=== PATIENT | female | born 2005 | race Hispanic/Latino ===

== ENCOUNTER 2023-04-17 19:27 | Inpatient (IN) | payer MEDICAID, SELFPAY ==
[2023-04-17 20:08] VITALS: BP 125/73; TEMP 36.6
[2023-04-17 20:09] VITALS: PULSE 82; O2SAT 97
[2023-04-17 20:10] VITALS: BMI 31.4
[2023-04-17] MEDS: Lactated Ringers 1,000 ML 50 ML IV (20:15)
--- NOTE | 2023-04-17 20:30 | PCM.HP.OB ---
HPI - General General Date of Admission: 04/17/23 HPI Taina TAYLOR, is a 17 F at 36.6 who presents for induction of labor for cholestasis. Maternal Data Information ADRIAN Calculator Estimated Delivery Date Method Current WG Current Estimate 05/09/23 Manual 36w 6d [facility] Medical History (Updated 04/17/23 @ 21:35 by Brigitte Turner CNM) Cholestasis during Home Medications ferrous sulfate 325 mg (65 mg iron) tablet (iron) 325 mg PO DAILY 04/17/23 [History Last Taken 04/17/23 08:00 325 mg] [id number] 1 mg tablet 1 tab PO DAILY 04/17/23 [History Last Taken 04/17/23 08:00 1 TAB] Allergy/AdvReac Type Severity Reaction Status Date / Time No Known Allergies Allergy Verified 04/17/23 20:11 History Elective abortions Hx Para 0 Spontaneous abortions Hx # Term Pregnancies Ectopic pregnancies Hx # Pregnancies Multiple births # of living children NST FHR Rate Baby A Baseline: 130 Variability:: Moderate Accelerations:: 15 x 15 Decelerations:: None NST Reactive:: Yes FHR Category:: Category I Uterine Activity:: None ROS Eyes Eyes: Denies blurry vision, change in vision or spots in vision ENT HEENT: Denies dizziness or headache(s) Cardiovascular Cardiovascular: Denies abdominal pain, chest pain or dyspnea Respiratory/Chest Respiratory/Chest: Denies cough, dyspnea, shortness of breath at rest or shortness of breath with exertion Gastrointestinal Gastrointestinal: Denies abdominal pain, diarrhea or vomiting Genitourinary Genitourinary: Denies change in urinary stream, difficulty urinating or dysuria Musculoskeletal Musculoskeletal: Reports none Integumentary Integumentary: Denies rash Neurologic Neurologic: Denies dizziness, headache(s), memory loss or weakness Psychiatric Psychiatric: Reports none Vital Signs Vital Signs Vital Signs: 04/17/23 20:08 04/17/23 20:08 04/17/23 20:09 Temperature Temperature Source Temporal Pulse Rate 82 Blood Pressure 125/73 H BP Systolic 125 BP Diastolic 73 Pulse Ox 04/17/23 20:09 04/17/23 20:08 Temperature 97.8 F Temperature Source Pulse Rate Blood Pressure BP Systolic BP Diastolic Pulse Ox 97 Weight Weight: 166 lb 0.129 oz Body Mass Index (BMI) 31.4 Physical Exam Const alert, oriented x3 and no apparent distress General Appearance: cooperative Orientation / Consciousness: awake HEENT normocephalic Head and Scalp: normal to inspection Eyes General Eye: normal appearance of both eyes Neck full ROM and no lymphadenopathy Lymph Lymphatic: no lymphadenopathy noted Chest inspection of chest normal Resp normal respiratory effort, normal air movement and clear to auscultation bilaterally Effort and Inspection: able to speak in complete sentences and symmetric chest movement Cardio regular rate and regular rhythm GI normal to inspection, nondistended, normoactive bowel sounds Back/Spine normal ROM Extremity full ROM and no calf tenderness Skin no rashes or lesions noted General Skin Exam: no breakdown Neuro oriented x3 and CN's II-XII intact bilaterally Psych mental status grossly normal and thought process normal Labs Labs Labs: Blood Type O POSITIVE Antibody Screen NEGATIVE Hct 33.0 % (37-47) L Hgb 10.7 g/dL (12.0-15.0) L Syphilis Total Ab Non-reactive Rubella NON immune GBS negative Assessment & Plan (1) Cholestasis during : (2) 36 to 37 weeks gestation of : (3) Language barrier: (4) Encounter for induction of labor: (5) Nulligravida: PLAN: Plan Admit to labor and delivery Routine labs Start IV fluids and run per orders CE - closed/ thick/ high Start Cytotec 25 mcg PO every 4 hours x 6 doses total GBS negative Dr. Pagan notified of admission and is collaborating physician
[2023-04-17 20:32] LABS: Absolute Lymphocyte Count 1.46 X10^3/uL (0.83-4.51); Absolute Neutrophil Count 5.4 X10^3/uL (2.0-7.7); Basophil# 0.03 X10^3/uL; Basophil% 0.3 % (0-1); Eosinophils% 14.8 % (0-5); Hemoglobin 10.7 g/dL (12.0-15.0); Lymphocyte # 1.46 X10^3/ul (0.83-4.51); Lymphocyte % 16.6 % (19-41); Mean Corp Hgb Conc 32.4 g/dL (32-36); Mean Corpuscular Hgb 27.5 pg (27.0-32.0); Mean Corpuscular Volume 84.8 fL (81-99); Mean Platelet Vol. 11.8 fl (6.2-12.0); Monocyte# 0.55 X10^3/uL; Monocyte% 6.3 % (0-10); NRBC Flagged by Analyzer 0.2 % (0-5); Neutrophil # 5.36 X10^3/uL (2.7-7.7); Neutrophil % 61.1 % (47-70); Platelet Count 288 K/mm3 (150-450); RBC Distribution Width CV 14.8 % (11.6-14.6); Red Blood Count 3.89 M/mm3 (4.2-5.4); White Blood Count 8.8 K/mm3 (4.4-11.0)
[2023-04-17 21:11] LABS: Syphilis Antibodies Non-reactive
[2023-04-17] MEDS: miSOPROStol 25 MCG TABLET PO (21:28)
--- NOTE | 2023-04-17 21:51 | NURSING ---
Supervisor Tunnel Heading ID number: [id number]
[2023-04-18] VITALS (19 sets, daily range): BP systolic 97–131; BP diastolic 51–68; PULSE 66–84; TEMP 36.3–36.9; O2SAT 95–100
--- NOTE | 2023-04-18 01:04 | NURSING ---
de icer ID number: [id number]
[2023-04-18] MEDS: miSOPROStol 25 MCG TABLET PO ×3 (01:36→09:51)
--- NOTE | 2023-04-18 05:49 | NURSING ---
Counter Caser ID number: [id number]
--- NOTE | 2023-04-18 07:19 | PN.OBGYN_ITS ---
Subjective Subjective Patient seen at bedside Resting throughout the night. Sometimes feeling contractions. Rates pain 1/10. Interpretation services utilized. Objective Data Objective Data Vital Signs: Vital Signs Temp Pulse BP Pulse Ox 97.3 F L 84 106/67 95 04/18/23 07:15 04/18/23 07:12 04/18/23 07:12 04/18/23 01:31 Weight: 166 lb 0.129 oz Body Mass Index (BMI) 31.4 Lab / Micro Data 04/17/23 20:15 Labs: Laboratory Results - last 24 hr 04/17/23 20:15: WBC 8.8, RBC 3.89 L, Hgb 10.7 L, Hct 33.0 L, MCV 84.8, MCH 27.5, MCHC 32.4, RDW Std Deviation 45.0 H, RDW Coeff of Preston 14.8 H, Plt Count 288, MPV 11.8, Immature Gran % (Auto) 0.900, Neut % (Auto) 61.1, Lymph % (Auto) 16.6 L, [place] % (Auto) 6.3, Eos % (Auto) 14.8 H, Baso % (Auto) 0.3, Absolute Neuts (auto) 5.4, Absolute Lymphs (auto) 1.46, Nucleated RBC % 0.2, Syphilis Total Ab Non- reactive, Blood Type O POSITIVE, Antibody Screen NEGATIVE ROS Eyes Eyes: Denies blurry vision Cardiovascular Cardiovascular: Reports none; Denies chest pain at rest, chest pain with activity or dizziness Respiratory/Chest Respiratory/Chest: Denies cough or dyspnea Gastrointestinal Gastrointestinal: Reports none and other; Denies diarrhea or vomiting Genitourinary Genitourinary: Denies dysuria Musculoskeletal Musculoskeletal: Reports none Integumentary Integumentary: Reports none; Denies rash Neurologic Neurologic: Denies dizziness, headache(s) or other visual disturbances Psychiatric Psychiatric: Reports none NST FHR Rate Baby A Baseline: 140 Variability:: Moderate Accelerations:: 15 x 15 Decelerations:: None NST Reactive:: Yes FHR Category:: Category I Uterine Activity:: 1-4 and palpate relaxed in between Assessment & Plan (1) Anemia affecting : (2) Nulligravida: (3) Encounter for induction of labor: (4) Language barrier: (5) 36 to 37 weeks gestation of : (6) Cholestasis during : PLAN: Plan Cat. 1 tracing, NST reactive Cytotec 25 mc PO every 4 hours x 6 doses total- Dose #3 CE closed/thick/high Continue present management Anticipate placement of glover bulb once dilated
[2023-04-18] MEDS: 0.9% Normal Saline Single 100 ML IV.SOLN. INTRA-UTER (12:50)
--- NOTE | 2023-04-18 12:57 | PCM.PN.BLA ---
Progress Note heart tones are category 1. Patient consented for Crawford placement. Crawford placed through the internal cervical os in the usual sterile fashion using a stylette for guidance. The balloon was inflated with 30 cc of normal saline and placement over the internal os confirmed. Patient and fetus tolerated the procedure well.
[2023-04-18] MEDS: Lactated Ringers 1,000 ML 50 ML IV (13:52)
[2023-04-18] MEDS: Oxytocin 15 Units/NS 250ml 15 UNITS/250 ML IV.SOLN 2 UNITS IV (14:07)
[2023-04-18] MEDS: fentaNYL 100 MCG/2 ML Ampul IV (15:34)
[2023-04-18] MEDS: Ondansetron 4 MG/2 ML Vial IV (23:31)
[2023-04-19] VITALS (24 sets, daily range): BP systolic 101–143; BP diastolic 47–90; PULSE 59–172; RESP 14–19; TEMP 35.7–38; O2SAT 91–100
[2023-04-19] MEDS: LACTATED RINGERS 500 ML 999 ML IV (00:43)
[2023-04-19] MEDS: Acetaminophen 500 MG Tablet PO (01:21)
[2023-04-19] MEDS: Sodium Citrate/Citric Acid 30 ML UDC PO (02:10)
--- NOTE | 2023-04-19 02:35 | PLAC_PTH ---
PATHOLOGY RESULTS PATIENT: CHACHO TAYLOR LOC: WP U#:[id number] AGE/SX: 18/F ROOM: WP006 RE04/17/[address]: Dr. Amy Blankenship MD : 2005 BED: 1 DIS: 04/21/2023 SPEC #: [id number] RECD: 04/19/23 14:19 STATUS: TRACY RETalat #: [id number] MONE: 04/19/23 02:[address]: Amy Blankenship DEPT: SURGICAL PATHOLOGY RECD BY: Cierra Baron ENTERED: 04/20/23 08:16 SP TYPE: PLACENTA OTHR DR: Brigitte Turner CNM No Primary Care Phys Tissues: Placenta, NOS Procedures: Surgery Specimen Level V HEADER OPERATION: Primary section PRE-OP DIAGNOSIS: tachycardia TISSUE SUBMITTED: Placenta MICROSCOPIC DIAGNOSIS Placenta: Placental disc - third trimester placenta (602 gm). - Focal increased calcification and focal mild increase of intervillous and perivillous fibrin deposition. Membranes - Minimal acute chorioamnionitis and focal bacterial colonization close to site of rupture of membranes. - mild acute and chronic decidual inflammation. Umbilical cord - three blood vessels and no pathologic diagnosis. SJ:yosef 04/24/2023 COMMENT Clinical correlation and appropriate follow up are necessary. This case has been reviewed in consultation with Dr. Addison who concurs with the above diagnosis. MICROSCOPIC DESCRIPTION Slides are reviewed. GROSS DESCRIPTION SPECIMEN: PLACENTA / CLINICAL INFORMATION: A. Weight: 2.895 kg B. Gestational Age: 37 weeks C. Sex: Male PLACENTAL WEIGHT (POST FIXATION): 602 gm PLACENTAL DIMENSIONS: 21.0 x 18.0 x 3.0 cm PLACENTAL SHAPE: Usual ovoid PLACENTAL WEIGHT FOR GESTATIONAL AGE: Over 99th percentile MEMBRANES - Present A. Insertion: Marginal B. Site of rupture from edge: At edge of placental disc C. Color of membrane: Herrera-tomas D. Abnormalities: None UMBILICAL CORD - Present A. Color: Herrera-tomas B. Insertion: Paracentral C. Length: 34.0 cm D. Diameter: 1.0 cm E. Number of vessels: Three F. Abnormalities: None PLACENTAL DISC - Present A. Color of surface: Herrera-tomas B. surface abnormalities: None C. Maternal cotyledons: Intact with minimal tears D. Attached retro placental clot: No clot E. Cut surface: Dark red and spongy F. Lesions: None G. Separate clot: Absent SECTIONS SUBMITTED: 1. Membrane roll 2. Cord, maternal end 3. Cord, end 4. Placental disc, and maternal surfaces 5. Placental disc, and maternal surfaces 6. Placental disc, and maternal surfaces SJ:yosef 04/23/2023 TC:5 CPT: 67015
--- NOTE | 2023-04-19 03:26 | OP.PCM_ITS ---
Assessment & Plan (1) Nulligravida: (2) Cholestasis during : (3) Non-reassuring electronic monitoring tracing: (4) tachycardia affecting management of mother: (5) deliv NOS-unsp: Maternal Data Information ADRIAN Calculator Estimated Delivery Date Method Current WG Current Estimate 05/09/23 Manual 37w 1d Final ADRIAN: 05/09/23 Gestational age: 37 1/7 Details Operative Information Date of Procedure: 04/19/23 Pre-Operative Diagnosis: nonreassuring fhts, persistent category 2 heart tone tracing remote from delivery Post-Operative Diagnosis: same Classification: Stat Procedure Type: low transverse production gear cutter #1: Janae Kauffman production gear cutter #2: Brigitte Turner Type of Anesthesia: General Anesthesiologist: Fritz Webber Special Medications: none Antibiotic Given: Ancef 2 grams IV x1 Drain: Crawford to straight drain Estimated Blood Loss: 950 Fluids Replaced: 600 Procedure Start Time: 02:31 Procedure Stop Time: 03:05 Time of Delivery: 02:35 Findings Description of Procedure: I was called Chelsie Turner CNM for tachycardia. Despite resuscitative measures Amniotic membranes were still intact. There remained tachycardia with moderate variability. Variability then progressed to minimal and she had some variable decelerations. I called the team and instructed them we would proceed with section GEMA. When I arrived there was very minimal variability with persistent tachycardia of unknown origin, her membranes have been ruptured and clear fluid returned.her abdomen was soft. She do not have an epidural. At that time I consulted with anesthesia and we agreed that we should proceed with a general anesthetic and move the to stat. . She was prepped and draped in the dorsal supine position with a leftward tilt. After general anesthesia was induced immediately a Pfannenstiel skin incision was made approximately 2 cm above the symphysis pubis and carried through to underlying layer fascia with the scalpel. The fascia was incised incised in the midline and extended laterally with the Heaton scissors and blunt dissection. The rectus muscles were in the midline and the peritoneum was entered bluntly. The peritoneal incision was stretched and the bladder blade was placed. There was not a lot of stretch to the abdominal wall so I extended the skin incision slightly. The uterine incision was made in a low transverse fashion with the scalpel and extended superiorly and inferiorly with blunt dissection. The amniotic membranes were ruptured bluntly and clear amniotic fluid returned. The infant's head was brought to the incision in the flexed position but was unable to be delivered easily. The rectus muscles and peritoneum were cut with bandage scissors and the vacuum was placed on the flexion point. The vacuum was created 550 cc and I pulled with 1 pull and no pop offs and the head delivered without difficulty. The remainder of the infant was delivered with gentle traction and fundal pressure in the standard fashion. The mouth and nares were bulb suctioned. The cord was clamped and cut as the was stimulated. The was handed off to the waiting nursing staff. The placenta was delivered. The uterus was exteriorized and cleared of all clots and debris. The uterine incision was closed with #1 Vicryl in a running locked fashion. A second layer of the same suture was used in an imbricating fashion. The incision was examined and was found to be hemostatic. The uterus was placed back into the peritoneal cavity and hemostasis was again confirmed. The rectus muscles were examined and any bleeding was Bovie ca uterized. The parietal peritoneum and rectus muscles were closed en bloc with an 0 Vicryl running suture. Some Collin was placed over the rectus muscles.. The rectus fascia was examined and any bleeding was Bovie cauterized and the rectus fascia was closed with 1 Vicryl suture in a running standard fashion. The subcutaneous tissue was examining and any bleeding was Bovie cauterized. The subcutaneous tissue was reapproximated with 3-0 Monocryl l suture. The skin was closed in a subcuticular fashion by me. I performed the entire procedure with assistance. All sponge, lap, and needle counts were correct. The patient was taken to her room for recovery in a stable condition. Presentation: Positive for Vertex Amniotic Membrane Rupture Type: Artificial Amniotic Fluid Description: Clear Placental Delivery Description: Manual Removal Placenta Disposition: Sent to Pathology Cord Vessel Description: 3 Vessels Cord Entanglement: Around neck x 1, loose Nuchal Cord Compression: Without compression Cord Gases: ABG and VBG Infant A Gender: Male (1 minute): 2 (5 minute): 9 Delayed Cord Clamping: No Complications Complications: none Admit VTE Documentation VTE Present on Admission: No VTE Mechan Device Prophylaxis: SCD's VTE Pharm Prophylaxis Ordered: No Reason Prophylaxis Not Ordered: Procedure Not Indicated
[2023-04-19] MEDS: Ketorolac 30 MG/ML Syringe IV ×4 (04:05→21:58)
[2023-04-19] MEDS: Oxytocin 15 Units/NS 250ml 15 UNITS/250 ML IV.SOLN 83 UNITS IV (04:29)
[2023-04-19] MEDS: Lactated Ringers 1,000 ML 100 ML IV (06:26)
[2023-04-19] MEDS: Acetaminophen 500 MG Tablet 1000 MG PO ×3 (07:52→19:38)
[2023-04-19] MEDS: Senna/Docusate Sodium 1 Tablet PO (09:59)
--- NOTE | 2023-04-19 12:07 | NURSING ---
when this RN was attempted to ambulated patient to chair, it was discovered that Crawford catheter was leaking and there was large puddle under the bed, this RN made decision to keep catheter indwelling to confirm that out put is appropriate prior to pulling it
[2023-04-19 14:38] LABS: Pathology Specimen OB SEE PATHOLOGY REPORT
--- NOTE | 2023-04-19 15:19 | NURSING ---
Child And Adolescent Therapist Estefania, ID #[id number] used for communication and education while this IBCLC was at the bedside.
[2023-04-19 16:12] LABS: Absolute Lymphocyte Count 1.33 X10^3/uL (0.83-4.51); Absolute Neutrophil Count 15.2 X10^3/uL (2.0-7.7); Basophil# 0.02 X10^3/uL; Basophil% 0.1 % (0-1); Eosinophil# 0.32 X10^3/uL; Eosinophils% 1.8 % (0-5); Hematocrit 21.5 % (37-47); Lymphocyte # 1.33 X10^3/ul (0.83-4.51); Lymphocyte % 7.4 % (19-41); Mean Corp Hgb Conc 32.6 g/dL (32-36); Mean Corpuscular Hgb 27.7 pg (27.0-32.0); Mean Platelet Vol. 10.7 fl (6.2-12.0); NRBC Flagged by Analyzer 0 % (0-5); Neutrophil # 15.24 X10^3/uL (2.7-7.7); Neutrophil % 85.1 % (47-70); Platelet Count 222 K/mm3 (150-450); RBC Distribution Width CV 15.1 % (11.6-14.6); RBC Distribution Width SD 45.9 fl (35.1-43.9); Red Blood Count 2.53 M/mm3 (4.2-5.4); White Blood Count 17.9 K/mm3 (4.4-11.0)
[2023-04-19] MEDS: SimETHICONE 80 MG Chewable Tablet PO (19:40)
--- NOTE | 2023-04-19 20:00 | NURSING ---
call to isabelle to update on pt status. pt oral temperature was 100, blood pressure elevated 141/75, heart rate 116. pt reports feeling like her heart is racing, it started when she got the chills around 1800. provider gave order to draw a CBC at 2100 and repeat again at 0600. provider gave antibiotic orders for clindamycin 900 mg IVPB Q8H for 24 hours and gentamicin 5mg/kg x1 dose.
[2023-04-19] MEDS: oxyCODONE 5 MG Tablet PO (20:03)
[2023-04-19] MEDS: Gentamicin IV 240 MG in Dextrose 5%-Water (50mL Bag) 50 ML 100 MG IVPB (20:29)
--- NOTE | 2023-04-19 20:46 | PCM.PN.OB ---
Subjective Subjective Called for fever and tachycardia. Per RN pain is controlled with oxycodone. Pt having difficulty ambulating due to discomfort. No lightheadedness or dizziness. Lochia normal. Objective Data Objective Data Vital Signs: Vital Signs Temp Pulse Resp BP Pulse Ox O2 Del Method 100 F H 116 H 18 141/75 H 99 Room Air 04/19/23 19:58 04/19/23 19:58 04/19/23 19:58 04/19/23 19:58 04/19/23 19:58 04/19/23 19:58 Oxygen Delivery Method Room Air Weight: 166 lb 0.129 oz Body Mass Index (BMI) 31.4 Intake & Output: Intake and Output for Last 24 Hours 04/17/23 04/18/23 04/19/23 23:59 23:59 23:59 Intake Total 920.07 / 920.07 2209.33 / 2209.33 Output Total 1950 / 1950 Balance 920.07 / 920.07 259.33 / 259.33 Lab / Micro Data 04/19/23 16:00 Labs: Laboratory Results - last 24 hr 04/19/23 16:00: WBC 17.9 H, RBC 2.53 L, Hgb 7.0 L, Hct 21.5 L, MCV 85.0, MCH 27.7, MCHC 32.6, RDW Std Deviation 45.9 H, RDW Coeff of Preston 15.1 H, Plt Count 222, MPV 10.7, Immature Gran % (Auto) 0.600, Neut % (Auto) 85.1 H, Lymph % (Auto) 7.4 L, [place] % (Auto) 5.0, Eos % (Auto) 1.8, Baso % (Auto) 0.1, Absolute Neuts (auto) 15.2 H, Absolute Lymphs (auto) 1.33, Nucleated RBC % 0 Physical Exam Const alert and no apparent distress Constitutional Narrative: Feels subjectively warm and clammy General Appearance: comfortable GI soft to palpation GI Narrative: Softly distended, no rebounding, no guarding, no rigidity Assessment & Plan (1) deliv NOS-unsp: (2) Tachycardia: PLAN: Likely secondary to anemia and suspected endometritis. (3) Fever: PLAN: Given fever, abdominal tenderness, and tachycardia treat for suspected endometritis. (4) Acute blood loss anemia: PLAN: Abdominal exam is non acute. Check CBC tonight and in AM. May need either IV iron or blood transfusion. No symptoms of anemia at this time.
[2023-04-19 21:04] LABS: Absolute Neutrophil Count 14.5 X10^3/uL (2.0-7.7); Basophil# 0.03 X10^3/uL; Basophil% 0.2 % (0-1); Eosinophil# 0.32 X10^3/uL; Eosinophils% 1.9 % (0-5); Hematocrit 21.9 % (37-47); Hemoglobin 7.1 g/dL (12.0-15.0); Lymphocyte % 6.5 % (19-41); Mean Corp Hgb Conc 32.4 g/dL (32-36); Mean Corpuscular Hgb 27.5 pg (27.0-32.0); Mean Corpuscular Volume 84.9 fL (81-99); Mean Platelet Vol. 10.9 fl (6.2-12.0); Monocyte# 0.77 X10^3/uL; Monocyte% 4.6 % (0-10); NRBC Flagged by Analyzer 0 % (0-5); Neutrophil # 14.52 X10^3/uL (2.7-7.7); Neutrophil % 86.3 % (47-70); Platelet Count 244 K/mm3 (150-450); RBC Distribution Width CV 15.4 % (11.6-14.6); RBC Distribution Width SD 46.5 fl (35.1-43.9); Red Blood Count 2.58 M/mm3 (4.2-5.4); White Blood Count 16.8 K/mm3 (4.4-11.0)
[2023-04-19] MEDS: Clindamycin 900 MG/50 ML BAG 75 MG IV (21:58)
[2023-04-20] VITALS (8 sets, daily range): BP systolic 98–120; BP diastolic 41–77; PULSE 73–111; RESP 16; TEMP 35.8–36.6; O2SAT 97–99
[2023-04-20] MEDS: Acetaminophen 500 MG Tablet 1000 MG PO ×4 (01:30→20:02)
[2023-04-20] MEDS: oxyCODONE 5 MG Tablet PO ×2 (01:33→16:41)
[2023-04-20] MEDS: 0.9% Saline Lock 10 ML Syringe IV ×4 (01:59→22:32)
[2023-04-20] MEDS: Ondansetron 4 MG/2 ML Vial IV (01:59)
[2023-04-20] MEDS: Naproxen 500 MG Tablet PO ×3 (04:16→20:02)
[2023-04-20] MEDS: Clindamycin 900 MG/50 ML BAG 75 MG IV ×3 (05:44→22:32)
[2023-04-20 06:03] LABS: Hematocrit 20.1 % (37-47); Hemoglobin 6.5 g/dL (12.0-15.0); Mean Corp Hgb Conc 32.3 g/dL (32-36); Mean Corpuscular Hgb 27.4 pg (27.0-32.0); Mean Corpuscular Volume 84.8 fL (81-99); Mean Platelet Vol. 10.2 fl (6.2-12.0); Platelet Count 220 K/mm3 (150-450); RBC Distribution Width CV 15.7 % (11.6-14.6); RBC Distribution Width SD 48.2 fl (35.1-43.9); Red Blood Count 2.37 M/mm3 (4.2-5.4)
--- NOTE | 2023-04-20 06:56 | NURSING ---
call to doctor to inform on pt's morning CBC results. Pt hgb 6.5. pt remains asymptomatic and vital signs are stable. pt no longer has an elevated temp. gave order for 1 unit of packed red blood cells and to draw a CBC 4 hours after administration.
--- NOTE | 2023-04-20 07:04 | NURSING ---
this RN at bedside with parts interpreter iPad to verify pt is okay with receiving blood products per physician order. pt verified she is okay with receiving blood products and order has been placed.
--- NOTE | 2023-04-20 08:05 | NURSING ---
alterations workroom clerk used to talk with patient about getting blood and signing consent. talked with patient about her medication she will be receiving throughout the day and how she is feeling.
--- NOTE | 2023-04-20 09:01 | NURSING ---
blood transfusion started. used director of logistics, Delfina #[id number], to talk with patient about transfusion reactions to watch for. pt states understanding.
--- NOTE | 2023-04-20 12:58 | PCM.PN.OB ---
Subjective Subjective Pain well-controlled. Average lochia. Denies nausea or vomiting. Urinating and ambulating without difficulty. Denies shortness of breath, palpitations or lightheadedness. Objective Data Objective Data Vital Signs: Vital Signs Temp Pulse Resp BP Pulse Ox O2 Del Method 97.6 F L 84 16 108/52 L 99 Room Air 04/20/23 11:05 04/20/23 11:05 04/20/23 11:05 04/20/23 11:05 04/20/23 11:05 04/20/23 11:05 Oxygen Delivery Method Room Air Weight: 75.3 kg Body Mass Index (BMI) 31.4 Intake & Output: Intake and Output for Last 24 Hours 04/18/23 04/19/23 04/20/23 23:59 23:59 23:59 Intake Total 920.07 / 920.07 2315.33 / 2315.33 51 / 51 Output Total 2125 / 2125 Balance 920.07 / 920.07 190.33 / 190.33 51 / 51 Lab / Micro Data 04/20/23 05:50 Labs: Laboratory Results - last 24 hr 04/17/23 20:15: Crossmatch See Detail 04/19/23 16:00: WBC 17.9 H, RBC 2.53 L, Hgb 7.0 L, Hct 21.5 L, MCV 85.0, MCH 27.7, MCHC 32.6, RDW Std Deviation 45.9 H, RDW Coeff of Preston 15.1 H, Plt Count 222, MPV 10.7, Immature Gran % (Auto) 0.600, Neut % (Auto) 85.1 H, Lymph % (Auto) 7.4 L, [place] % (Auto) 5.0, Eos % (Auto) 1.8, Baso % (Auto) 0.1, Absolute Neuts (auto) 15.2 H, Absolute Lymphs (auto) 1.33, Nucleated RBC % 0 04/19/23 20:52: WBC 16.8 H, RBC 2.58 L, Hgb 7.1 L, Hct 21.9 L, MCV 84.9, MCH 27.5, MCHC 32.4, RDW Std Deviation 46.5 H, RDW Coeff of [place] 15.4 H, Plt Count 244, MPV 10.9, Immature Gran % (Auto) 0.500, Neut % (Auto) 86.3 H, Lymph % (Auto) 6.5 L, [place] % (Auto) 4.6, Eos % (Auto) 1.9, Baso % (Auto) 0.2, Absolute Neuts (auto) 14.5 H, Absolute Lymphs (auto) 1.10, Nucleated RBC % 0 04/20/23 05:50: WBC 18.0 H, RBC 2.37 L, Hgb 6.5 L, Hct 20.1 L, MCV 84.8, MCH 27.4, MCHC 32.3, RDW Std Deviation 48.2 H, RDW Coeff of [place] 15.7 H, Plt Count 220, MPV 10.2 Physical Exam Const alert General Appearance: cooperative GI GI Narrative: soft, moderate distention, fundus firm, appropriately tender. Abdominal bandage clean dry and intact Assessment & Plan (1) Acute blood loss anemia: PLAN: Acute chronic antepartum anemia with superimposed acute blood loss from delivery. Status posttransfusion of 1 unit packed red blood cells. CBC is pending. Patient is hemodynamically stable. Suspect most blood loss was from the actual surgery. No suspicion of ongoing blood loss. Recheck CBC in a.m. calculated estimated blood loss is approximately 2100 cc. This is consistent with hemorrhage with delivery. Fever, with tachycardia in labor. Maternal tachycardia . Consistent with suspected endometritis. Will finish 24 hours antibiotics and if afebrile remain off antibiotics. Likely discharge home tomorrow. is breast-feeding and doing well. (2) deliv NOS-unsp:
[2023-04-20] MEDS: Senna/Docusate Sodium 1 Tablet PO (13:08)
--- NOTE | 2023-04-20 15:20 | CASEMGMT ---
Social Work Assessment Labor and Delivery Unit Patient Address: [address] [place] [id number] Phone number: [phone] Date of Referral: 04/20/23 Time of Referral:? 36 Referred By: Donita Simmons Date of Intervention: ?04/20/23? Time of intervention:?1444 Reason for Referral:? resources Sw completed chart review and acknowledges social work consult due to maternal need of resources. Sw presented to bedside and using iPad food production worker (Yaritza ID# [id number]) introduced self to mother of baby and her visitor. MOB identified that the visitor is her mother and it is ok to continue assessment with her present. Sw completed psychosocial assessment and provided MOB with list of resources. History obtained from: medical records, MOB Household composition: MOB is currently residing with her sister, and now baby. MOB denies any concerns with housing. Patient's parent/guardian status:? ?MOB states that she and FOB were dating, not residing together when she got . Sw asked MOB several times if this was a consensual relationship to which MOB became . MOB stated that it was. Sw asked MOB if she is safe or in a dangerous relationship, to which MOB denied. Medical History: ?MOB is 1, para 0- now 1 following labor and delivery. MOB received care with [facility]. MOB delivered baby at 37 weeks gestation via following an induction of labor on 04/19/23. Baby boy, named Lane Ray, was born weighing 6lb 13oz and his apgars were 2 and 9 at one and five minutes of life respectfully. MOB states that baby will be followed by Dr. Jernigan for pediatrics. Educational Status:? MOB reports to completing 12 grade. Financial Status: MOB is unemployed. Supplies:?? MOB has obtained all necessary baby supplies, including: car seat, safe sleep space, clothes, diapers and wipes Childcare/Caregiver(s):? MOB will be the primary caregiver to baby, along with her mother (maternal grandmother) and her sister with whom she resides. Transportation:??MOB states that she drives. Programs/Agencies Involved: ???MOB reports that she applied for Medicaid, and was told to call them back after baby was born. Sw offered to get MOB connected to [facility], but MOB denied. MOB getting connected to [facility]. Information/ phone number provided. Maternal grandma stated that she knows how to get linked to them for resources. Children Services/Legal Issues:??No history, no issues or concerns warranting referral to be made? Behavioral Health Issues: ??Mental Health History:??MOB denies mental health history? Substance Use History:?MOB denies substance use prior to and during .? Family History:??MOB states that no one in her family has any history of substance use and does not have any significant mental health diagnoses??? Drug Screens: ??No urine screens observed during chart review. Family/Social Stressors:? MOB denies Support Systems: Maternal grandma and sister. Depression/Shaken Baby/Safe Sleeping:? Sw educated MOB on signs and symptoms of baby blues and depression/ anxiety. Sw provided literature for MOB to review. MOB expressed understanding. Sw educated MOB on shaken baby prevention and ABCs of safe sleep. MOB expressed understanding. ASSESSMENT:? MOB and baby admitted following labor and delivery. MOB made eye contact and engaged in assessment using food production worker. However, maternal grandma also present and would answer questions asked and then mom would repeat the answer. Sw asked MOB if sw should come back to complete assessment when she does not have any visitors due to grandma answering all of the assessment questions. MOB stated that it was ok to continue assessment, but she is asking her mom for help because she just came here. When sw asked for clarification regarding what mom meant by just coming here, MAE states that [place]. MOB was receptive to resources provided and has plans on getting connected to [place]. PLAN:? MOB and baby to be discharged when medically ready. ?No other services requested or indicated. Eligio Allen, COSMETICS COUNTER MANAGER, PASSENGER REPRESENTATIVE
[2023-04-20 15:57] LABS: Absolute Lymphocyte Count 1.46 X10^3/uL (0.83-4.51); Absolute Neutrophil Count 14.5 X10^3/uL (2.0-7.7); Basophil# 0.05 X10^3/uL; Basophil% 0.3 % (0-1); Eosinophil# 1.03 X10^3/uL; Eosinophils% 5.7 % (0-5); Hematocrit 23.8 % (37-47); Hemoglobin 7.5 g/dL (12.0-15.0); Lymphocyte # 1.46 X10^3/ul (0.83-4.51); Lymphocyte % 8.1 % (19-41); Mean Corp Hgb Conc 31.5 g/dL (32-36); Mean Corpuscular Hgb 27.2 pg (27.0-32.0); Mean Corpuscular Volume 86.2 fL (81-99); Mean Platelet Vol. 10.9 fl (6.2-12.0); Monocyte# 0.82 X10^3/uL; Monocyte% 4.5 % (0-10); NRBC Flagged by Analyzer 0 % (0-5); Neutrophil # 14.51 X10^3/uL (2.7-7.7); Neutrophil % 80.4 % (47-70); Platelet Count 243 K/mm3 (150-450); RBC Distribution Width CV 15.2 % (11.6-14.6); RBC Distribution Width SD 47.1 fl (35.1-43.9); Red Blood Count 2.76 M/mm3 (4.2-5.4); White Blood Count 18.1 K/mm3 (4.4-11.0)
[2023-04-20] MEDS: Iron Sucrose Complex 200 MG in 0.9% Normal Saline (100mL Bag) 100 ML 220 MG IV (16:13)
[2023-04-21] MEDS: Acetaminophen 500 MG Tablet 1000 MG PO ×2 (01:38→08:06)
[2023-04-21 01:40] VITALS: BP 124/50; PULSE 87; RESP 16; TEMP 36.6; O2SAT 98
[2023-04-21] MEDS: Naproxen 500 MG Tablet PO (04:17)
[2023-04-21 05:57] LABS: Hematocrit 24.7 % (37-47); Hemoglobin 7.8 g/dL (12.0-15.0); Mean Corp Hgb Conc 31.6 g/dL (32-36); Mean Corpuscular Hgb 27.7 pg (27.0-32.0); Mean Corpuscular Volume 87.6 fL (81-99); Mean Platelet Vol. 10.5 fl (6.2-12.0); Platelet Count 258 K/mm3 (150-450); RBC Distribution Width CV 15.3 % (11.6-14.6); RBC Distribution Width SD 48.6 fl (35.1-43.9); Red Blood Count 2.82 M/mm3 (4.2-5.4); White Blood Count 19.4 K/mm3 (4.4-11.0)
[2023-04-21 08:00] VITALS: BP 111/42; PULSE 72; RESP 16; TEMP 36; O2SAT 98
[2023-04-21] MEDS: Etonogestrel 68 MG IMPLANT SC (08:14)
--- NOTE | 2023-04-21 08:52 | DS.PCM_ITS ---
Providers Date of Admission: 04/17/23 Primary Care Physician: No Primary Care Phys Reason For Visit: PRIMARY C SECTION Diagnosis Discharge Diagnosis (1) Acute blood loss anemia: Status: Acute Code(s): D62 - Acute posthemorrhagic anemia (2) deliv NOS-unsp: Status: Acute Medications at Discharge Home Medications ferrous sulfate 325 mg (65 mg iron) tablet (iron) 325 mg PO DAILY 04/17/23 [id number] 1 mg tablet 1 tab PO DAILY 04/17/23 acetaminophen 500 mg tablet 1,000 mg (2 x 500 mg) PO Q6H #0 tabs 04/21/23 naproxen 500 mg tablet 500 mg PO Q8H #0 tabs 04/21/23 sennosides 8.6 mg-docusate sodium 50 mg tablet (Stool Softener-Stimulant Laxative) 1 - 2 tab PO DAILY #0 tabs 04/21/23 Hospital Course Operations section Procedures None Summary of Care Provided Minutes Spent on Discharge: 25 Hospital Course: Patient had primary section. Hospital course was uneventful. Physical Exam Narrative Interpretation services utilized. Patient denies any pain. Ambulating and voiding without difficulty. Passing flatus but no bowel movement. Lochia is minimal. Denies any headache, dizziness, SOB, or CP. Both breast and formula feeding . Desires discharge home today. Const alert and no apparent distress General Appearance: cooperative and comfortable Exam Limitations: no limitations HEENT normocephalic Eyes General Eye: normal appearance of both eyes Neck full ROM General: normal visual inspection Chest Chest: symmetrical chest wall rise Resp normal respiratory effort and normal air movement Effort and Inspection: symmetric chest movement Auscultation: clear to auscultation bilaterally Cardio regular rate and regular rhythm GI normal to inspection, nondistended, normoactive bowel sounds Back/Spine normal ROM Extremity full ROM and no calf tenderness General Extremity: normal exam except as noted Skin no rashes or lesions noted Neuro CN's II-XII intact bilaterally Psych mental status grossly normal Weight / BMI Weight Weight: 166 lb 0.129 oz Body Mass Index (BMI) 31.4 ABG / Lab / Microbiology Data 04/21/23 05:45 Laboratory: Laboratory Results - last 24 hr 04/17/23 20:15: Crossmatch See Detail 04/20/23 15:25: WBC 18.1 H, RBC 2.76 L, Hgb 7.5 L, Hct 23.8 L, MCV 86.2, MCH 2 7.2, MCHC 31.5 L, RDW Std Deviation 47.1 H, RDW Coeff of Preston 15.2 H, Plt Count 243, MPV 10.9, Immature Gran % (Auto) 1.000 H, Neut % (Auto) 80.4 H, Lymph % (Auto) 8.1 L, [place] % (Auto) 4.5, Eos % (Auto) 5.7 H, Baso % (Auto) 0.3, Absolute Neuts (auto) 14.5 H, Absolute Lymphs (auto) 1.46, Nucleated RBC % 0 04/21/23 05:45: WBC 19.4 H, RBC 2.82 L, Hgb 7.8 L, Hct 24.7 L, MCV 87.6, MCH 27.7, MCHC 31.6 L, RDW Std Deviation 48.6 H, RDW Coeff of [place] 15.3 H, Plt Count 258, MPV 10.5 D/C Instructions Discharge Diet: No restrictions May resume sexual activity in: 6-8 weeks Weight Bearing Status: Weight bearing as tolerated Lifting Restrictions: 20 lbs Call your doctor if your incision/area has: Continuous Slow Oozing, Increased Pain/ Swelling, Increased Redness, Foul Smelling Discharge and Swelling at the incision site Call your doctor if you observe: Fever of 101 or Higher, Inability to urinate, Using more than 1 pad per hour, Shortness of breath, Chest pain, Calf discomfort and Uncontrolled pain Remove Dressing in: 5 days Cleanse incision/area with: Soap & Water and Keep Dressing Clean & Dry Please Follow Up With: Brigitte Turner CNM When: 1 week in office for incision check or sooner if needed 6 weeks Meaningful Use Info Meaningful Use Diagnoses (Choose all that apply): None applicable Discharge Plan Admission Admit Date/Time: 04/17/23 19:27 Primary Reason for Your Visit: Labor and Delivery Attending Provider: Amy Blankenship Primary Care Provider: Care Physician,No Primary Discharge Orders/Prescriptions Prescriptions: New sennosides-docusate sodium [Stool Softener-Stimulant Laxat] 8.6-50 mg Tablet 1 - 2 tab PO DAILY Qty: 0 0RF acetaminophen 500 mg Tablet 1,000 mg PO Q6H Qty: 0 0RF naproxen 500 mg Tablet 500 mg PO Q8H Qty: 0 0RF Continued [id number] 1 mg tablet 1 tab PO DAILY ferrous sulfate [iron] 325 mg (65 mg iron) tablet 325 mg PO DAILY Referrals / Follow Up: Care Physician,No Primary [Primary Care Provider] - Brigitte Turner CNM [Med Staff - Adv Practice Prof] - Disposition Disposition (needs filled in before D/C Order can be placed): Home, Self Care
--- NOTE | 2023-04-21 09:00 | EX.PCM.OBRPT ---
Assessment & Plan (1) Insertion of Nexplanon: PLAN: Plan Interpretation services utilized. LARC consent signed by patient. Reviewed R/B/A to insertion of Nexplanon and questions answered. Patient placed in supine position with left arm up over head. Area cleaned with Betadine and sprayed with anesthesia spray. Nexplanon inserted without difficulty. Steri strips and pressure dressing placed. Patient given instructions on removal of dressing in 24 hours and to notify office of any signs or symptoms of infection at insertion site. Maternal Data Information ADRIAN Calculator Estimated Delivery Date Method Current WG Current Estimate 05/09/23 Manual 37w 3d
[2023-04-21] MEDS: Senna/Docusate Sodium 1 Tablet PO (10:52)
--- NOTE | 2023-04-21 12:02 | NURSING ---
staff interpreter used at 1030 to go over discharge instructions. patients states understanding.
[2023-04-21 19:07] LABS: HCV Quant. RNA PCR HCV Not Detected IU/mL (.)
== END 2023-04-21 11:35 | disposition home or self-care (01) | DRG 786 ==
PROVIDERS: Obstetrics & Gynecology; Admitting Provider Advanced Practice Midwife; Visit Provider Obstetrics & Gynecology
DX: O76 Abnormality in fetal heart rate and rhythm complicating labor and delivery (principal); K83.1 Obstruction of bile duct; D62 Acute posthemorrhagic anemia; O26.62 Liver and biliary tract disorders in childbirth; O86.12 Endometritis following delivery; Z37.0 Single live birth; O69.2XX0 Labor and delivery complicated by other cord entanglement, with compression, not applicable or unspecified; O90.81 Anemia of the puerperium; Z3A.36 36 weeks gestation of pregnancy; Z60.3 Acculturation difficulty
CPT/HCPCS: 59025; 59050; 85025; 85027; 86780; 86850; 86900; 86901; 86920; 87522; 88307; 99221; J1756; J7120; P9016; A4216; G0378; J2405